=== PATIENT | male | born 1985 | race African-American/Black ===

== ENCOUNTER → 2016-10-25 | Outpatient (CLI) | payer OTHER ==
[2016-10-26 00:03] LABS: CORTISOL RANDOM 10 ug/dL (3-20)
[2016-10-28 12:34] LABS: .METANEPHRINE <0.20 nmol/L (<0.50); .NORMETANEPH 0.37 nmol/L (<0.90)
== END ==
LOC: COL.LAB 09:00
PROVIDERS: Internal Medicine Interventional Cardiology
DX: I10 Essential (primary) hypertension (principal)

== ENCOUNTER → 2016-12-11 | Outpatient (CLI) | payer OTHER ==
[2016-12-11 14:46] LABS: URINE 24 HOUR CREATININE 2.4 gm/24 hr (1.0-2.0)
== END ==
LOC: COL.LAB 08:48
PROVIDERS: Internal Medicine Interventional Cardiology
DX: I10 Essential (primary) hypertension (principal)